=== PATIENT | male | born 1940 | race Caucasian/White ===

== ENCOUNTER 2018-06-20 17:28 | Emergency (ER) | payer MEDICARE, MEDICAID ==
[~2018-06-20] VITALS: Ht 175.3 cm; Wt 81.6 kg
--- NOTE | 2018-06-20 17:45 | NUR ---
PT BIB RA C/O FALL ABRASION ON FOREHEAD, PT IS AOX0, CONFUSE, NOT IN RESPIRATORY DISTRESS, V/S STABLE, KEPT RESTED AND COMFORTABLE.
[2018-06-20] MEDS ORDERED: TDAP [DIPH/PERTUSSIS/TET] 0.5 ML VIAL IM ONE ×2 (18:00→18:04)
--- NOTE | 2018-06-20 18:05 | NUR ---
PT IS WHEELED TO CT SCAN.
--- NOTE | 2018-06-20 18:22 | NUR ---
PT IS BACK FROM THE CT SCAN.
--- NOTE | 2018-06-20 19:25 | NUR ---
REPORT GIVEN TO FRANCISCO JAVIER NICHOLS FOR JEOVANNY.
--- NOTE | 2018-06-20 19:40 | NUR ---
RECEIVED REPORT FROM DAYSHIFT RN. FOUND Pt RESTING IN BED. NO S/S OF ACUTE DISTRESS OR SOB NOTED. Pt IS EASILY AWAKENED AND VERY CONFUSED. WILL CONTINUE TO MONITOR Pt.
[2018-06-20] MEDS ORDERED: OLANZAPINE 10 MG VIAL IM ONE ×2 (20:00→20:06)
--- NOTE | 2018-06-20 20:18 | NUR ---
ADMINSITERED ZYPREXA 5MG IM ON LEFT DELTOID
[2018-06-20 20:52] LABS: BASOPHILS # (AUTO) 0.1 /CMM (0.0-0.2); EOSINOPHILS % (AUTO) 1.7 % (0.0-6.0); HEMATOCRIT 40 % (39-51); HEMOGLOBIN 13.8 g/dL (13.5-17.5); LYMPHOCYTES # (AUTO) 1.5 /CMM (0.8-4.8); LYMPHOCYTES % (AUTO) 23.5 % (20.0-44.0); MEAN CORPUSCULAR HGB CONC 35 g/dl (31.0-36.0); MEAN CORPUSCULAR VOLUME 94 fL (80-96); MONOCYTES # (AUTO) 0.5 /CMM (0.1-1.30); MONOCYTES % (AUTO) 7.2 % (2.0-12.0); NEUTROPHILS # (AUTO) 4.2 /CMM (1.8-8.9); NEUTROPHILS % (AUTO) 66.6 % (43.0-81.0); PLATELET COUNT (AUTO) 207 /CMM (150-450); RED BLOOD CELL COUNT(AUTO) 4.26 MIL/uL (4.5-6.0); WHITE BLOOD COUNT (AUTO) 6.3 K/uL (4.3-11.0)
--- NOTE | 2018-06-20 20:55 | NUR ---
IV ACCESS STARTED ON LFA #20G
--- NOTE | 2018-06-20 20:55 | NUR ---
BLOOD COLLECTED AND SENT WITH LAB
[2018-06-20 21:03] LABS: CALCIUM, SERUM 8.2 mg/dL (8.5-10.1); CARBON DIOXIDE 28 mmol/L (21-32); CHLORIDE 108 mmol/L (98-107); CREATININE 0.9 mg/dL (0.6-1.3); GLUCOSE 99 mg/dL (74-106); POTASSIUM 3.9 mmol/L (3.5-5.1); SODIUM SERUM 144 mmol/L (136-145); UREA NITROGEN, BLOOD 26 mg/dL (7-18)
--- NOTE | 2018-06-20 21:05 | NUR ---
Cornelia cruz in [facility] - 06/20/18 at 2114 by LINUS Bed 4400-7. Call for report , Press #1 and ext. [phone]
[2018-06-20 21:08] VITALS: BP 157/74
--- NOTE | 2018-06-20 21:14 | NUR ---
Bed 6572-1. Call for report , Press #1 and ext. [phone]
--- NOTE | 2018-06-20 21:28 | NUR ---
REPORT GIVEN TO PAYROLL AND BENEFITS COORDINATOR FARNAZ. NURSE ASSIGNED TO Pt IS LUZ ELENA. ASSIGNED TO BED 4402-1. EMT AMBULANCE IS HERE TO DIRECTOR EDUCATIONAL RADIO Pt FOR TRANSFER TO [facility]. VS STABLE. C-SPINE NECK BRACE IN PLACE. NO S/S OF ACUTE DISTRESS OR SOB NOTED. Pt BEING TRANSFERED SAFELY TO [facility].
== END 2018-06-20 22:44 ==
LOC: ER 17:33
DX: S13.160A Subluxation of C5/C6 cervical vertebrae, initial encounter (principal); S00.81XA Abrasion of other part of head, initial encounter; F03.90 Unspecified dementia, unspecified severity, without behavioral disturbance, psychotic disturbance, mood disturbance, and anxiety; F29 Unspecified psychosis not due to a substance or known physiological condition; N40.0 Benign prostatic hyperplasia without lower urinary tract symptoms; F41.9 Anxiety disorder, unspecified; Z88.6 Allergy status to analgesic agent; Z88.5 Allergy status to narcotic agent; Z88.8 Allergy status to other drugs, medicaments and biological substances; W18.39XA Other fall on same level, initial encounter; Y93.89 Activity, other specified; Y92.89 Other specified places as the place of occurrence of the external cause; Y99.8 Other external cause status
CPT/HCPCS: 36415; 70450-TC; 71045-TC; 72125-TC; 80048-TC; 85025-TC; 85730-TC; 87081-TC; 90715; A4606; A6402; J3490; L0172; Z7610